=== PATIENT | female | born 1965 | race Caucasian/White ===

== ENCOUNTER → 2017-02-26 | Day surgery (SDC) | payer BC ==
--- NOTE | 2017-02-27 10:33 | OP ---
DATE OF OPERATION: 02/26/2017 PREOPERATIVE DIAGNOSIS: Left breast mass, 3 o'clock, 8 cm from the nipple. POSTOPERATIVE DIAGNOSIS: Left breast mass, 3 o'clock, 8 cm from the nipple. PROCEDURE: Left ultrasound guided core biopsy with clip placement. ANESTHESIA: Local. ATTENDING SURGEON: Deanna Robles MD ESTIMATED BLOOD LOSS: Minimal. COMPLICATIONS: None. DESCRIPTION OF PROCEDURE: Patient was made aware of the risks and benefits of the procedure and consented. She was placed in the supine position. Under sterile conditions with 1% Lidocaine for local anesthesia, small elvia was made in the skin. Using a 10-guage suction biopsy device through a lateral approach and ultrasound guidance, multiple cores were obtained and submitted to Pathology. Likewise, under ultrasound guidance, a bowtie clip was placed into the biopsy region. Well tolerated by patient. Steri-Strip and sterile bandage were applied. Will contact her with results. DEANNA ROBLES M.D. [id number]
--- NOTE | 2017-02-28 15:38 | PATH ---
Surgical Pathology Report Patient Name: NESSA GOMEZ [facility]. Rec. #: [id number] /Age/Gender: 1965 (Age: 51) / F Account: [id number] Location: [facility] RADIOLOGY U Taken: 02/26/2017 Received: 02/26/2017 Reported: 02/28/2017 Physicians: Deanna Robles M.D. Specimen(s) Received LEFT BREAST 3:00 8CM FN CORE BIOPSY Clinical History Nonpalpable lesion Ultrasound findings: Highly suspicious/malignant Final Diagnosis BREAST, LEFT, 3:00, 8 CM FN, CORE BIOPSY: SCANT BENIGN BREAST TISSUE SHOWING CYST FORMATION AND STROMAL FIBROSIS. Electronically Signed Ladonna Arriaga M.D. Gross Description Received in formalin labeled "left breast biopsy 3:00, 8cmfn," is a 1.2 x 1.0 x 0.2 cm aggregate of multiple stoll-yellow, irregular to cylindrical portions of fibroadipose tissue. The formalin is filtered and the specimen is entirely submitted in one cassette. Time to formalin fixation: Not given Total formalin fixation time: 26-34 hours /02/27/2017 saudi02/27/2017
== END | disposition home or self-care (01) ==
LOC: FRADUS-SUR 14:31
PROVIDERS: ATTEND Surgery Surgical Oncology
PROC: 0HBU3ZX Excision of Left Breast, Percutaneous Approach, Diagnostic (ICD-10-PCS; principal; 2017-02-26)
DX: N60.32 Fibrosclerosis of left breast (principal); N63.20 Unspecified lump in the left breast, unspecified quadrant
CPT/HCPCS: 19083

== ENCOUNTER 2022-03-05 01:29 | Emergency (ER) | payer OTHER ==
[2022-03-05 01:44] VITALS: PULSE 84; RESP 18; TEMP 97.9; BMI 31.1
[2022-03-05] MEDS ORDERED: LOSARTAN POTASSIUM 50 MG TABLET PO ONE (02:35)
[2022-03-05] MEDS ORDERED: LOSARTAN POTASSIUM 50 MG TABLET ONE (02:53)
[2022-03-05 03:03] VITALS: BP 165/99
== END 2022-03-05 03:40 | disposition home or self-care (01) ==
LOC: JER 01:29
DX: U07.1 COVID-19 (principal); I10 Essential (primary) hypertension
CPT/HCPCS: 93005; 93010; 99283-25

== ENCOUNTER 2023-01-29 21:16 | Emergency (ER) | payer OTHER ==
[2023-01-29 21:23] VITALS: TEMP 97.8; BMI 31.1
[2023-01-29] MEDS ORDERED: ACETAMINOPHEN 1000 MG/100 ML BAG IVPB ONE (22:07)
[2023-01-29] MEDS ORDERED: SODIUM CHLORIDE 0.9% 500 ML INFUS.BAG IV ONE (22:07)
[2023-01-29] MEDS ORDERED: ACETAMINOPHEN INJECTION 100 ML IVPB ONE (22:56)
[2023-01-30 00:30] LABS: BASO % 0.7 % (0-2.0); EOS % 1.7 % (0-4.5); HEMATOCRIT 39.1 % (32.4-45.2); HEMOGLOBIN 13.3 GM/dL (10.7-15.3); LYMPH % 38.3 % (8-40); MCH 29.9 pg (25.7-33.7); MEAN CELL VOLUME 87.9 fl (80-96); MONO % 5.8 % (3.8-10.2); NEUT % 53.5 % (42.8-82.8); PLATELET COUNT 293 10^3/uL (134-434); RBC 4.44 M/mm3 (3.60-5.2); RDW 13.5 % (11.6-15.6); URINE APPEARANCE CLEAR; URINE BILIRUBIN NEGATIVE (NEGATIVE); URINE COLOR YELLOW; URINE GLUCOSE (UA) NEGATIVE (NEGATIVE); URINE KETONE NEGATIVE (NEGATIVE); URINE LEUK ESTERASE NEGATIVE (NEGATIVE); URINE NITRITE NEGATIVE (NEGATIVE); URINE PROTEIN NEGATIVE (NEGATIVE); URINE UROBILINOGEN 0.2 mg/dL (0.2-1.0); WHITE BLOOD COUNT 9.1 K/mm3 (4.0-10.0)
[2023-01-30 01:05] LABS: POTASSIUM 5.1 mmol/L (3.5-5.1)
[2023-01-30 01:08] LABS: CALCIUM 9.7 mg/dL (8.5-10.1)
[2023-01-30 01:09] LABS: ALBUMIN 3.7 g/dl (3.4-5.0); BLOOD UREA NITROGEN 19.5 mg/dL (7-18)
[2023-01-30 01:12] LABS: CREATININE 0.7 mg/dL (0.55-1.3)
[2023-01-30 01:13] LABS: BILIRUBIN,TOTAL 0.3 mg/dL (0.2-1); TOT PROT 7.4 g/dl (6.4-8.2)
[2023-01-30 04:02] VITALS: BP 128/85; PULSE 75; RESP 16
== END 2023-01-30 08:11 | disposition home or self-care (01) ==
LOC: JER 21:16
PROC: 3E033NZ Introduction of Analgesics, Hypnotics, Sedatives into Peripheral Vein, Percutaneous Approach (ICD-10-PCS; principal; 2023-01-30)
DX: R10.11 Right upper quadrant pain (principal); R10.33 Periumbilical pain; Z20.822 Contact with and (suspected) exposure to COVID-19
CPT/HCPCS: 0241U-QW; 36415; 71045-TC-FY; 74177-TC; 76705-TC; 80053; 81003; 83690; 84484; 85025; 87086; 93005; 93010; 99285-25

== ENCOUNTER 2023-08-01 10:26 | Emergency (ER) | payer OTHER ==
[2023-08-01 11:05] VITALS: BP 116/64; PULSE 64; RESP 18; TEMP 98; BMI 30.6
[2023-08-01] MEDS ORDERED: ACETAMINOPHEN 325 MG TABLET (FP) ONE (12:48)
[2023-08-01] MEDS ORDERED: ONDANSETRON *ODT* 4 MG TABLET ONE (12:48)
[2023-08-01] MEDS: ACETAMINOPHEN 325 MG TABLET (FP) PO ONE (12:56)
[2023-08-01] MEDS: ONDANSETRON *ODT* 4 MG TABLET SL ONE (12:56)
== END 2023-08-01 15:14 | disposition home or self-care (01) ==
LOC: JER 10:26
DX: S09.90XA Unspecified injury of head, initial encounter (principal); D18.1 Lymphangioma, any site; W22.8XXA Striking against or struck by other objects, initial encounter
CPT/HCPCS: 70450-TC; 99284-25; Q0162